=== PATIENT | female | born 1970 | race Caucasian/White ===

== ENCOUNTER → 2021-07-20 10:18 | Outpatient (CLI) | payer OTHER, SELFPAY ==
--- NOTE | ~2021-07-20 | XR_ITS ---
XR knee LT min 4V DATE: 07/20/2021 11:37 INDICATION: Left knee pain TECHNIQUE: Percy and standing AP, PA and lateral views COMPARISON: None FINDINGS: No fracture or dislocation or joint effusion. No radiopaque intra-articular loose body or c hondrocalcinosis. No periosteal reaction or bone destruction. IMPRESSION: No significant abnormality Reviewed, dictated and finalized at location A. IMPRESSION: No significant abnormality
--- NOTE | ~2021-07-20 | XR_ITS ---
XR knee RT min 4V DATE: 07/20/2021 11:37 INDICATION: Right knee pain TECHNIQUE: [place] and standing AP, PA and lateral views COMPARISON: None FINDINGS: There is mild loss of height at the medial compartment and slight periarticular spurring of the medial tibial plateau. No fracture or dislocation or joint effusion. No periosteal reaction or b one destruction. No radiopaque intra-articular loose body or chondrocalcinosis. 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
== END ==
PROVIDERS: PCP Family Medicine; Visit Provider Physician Assistant
DX: M25.562 Pain in left knee (principal); M25.561 Pain in right knee; M17.11 Unilateral primary osteoarthritis, right knee
CPT/HCPCS: 73564

== ENCOUNTER → 2021-12-23 16:01 | Outpatient (CLI) | payer OTHER, SELFPAY ==
--- NOTE | ~2021-12-23 | MM_ITS ---
EXAMINATION: MM scrn chiquita implant BI w clem HISTORY: Screening mammogram TECHNIQUE: Craniocaudal and mediolateral oblique 3-D tomosynthesis images with implant displacement a nd synthetic 2-D images were generated. Craniocaudal and mediolateral oblique views of the breasts wi thout implant displacement were obtained using full field digital mammography. CAD analysis was submi tted and interpreted. COMPARISON: 11/15/2018, 10/20/2017 BREAST PARENCHYMAL COMPOSITION: There are scattered areas of fibroglandular density. FINDINGS: There is no evidence of suspicious mass, calcification, or architectural distortion to sugg est malignancy in either breast. There has been no suspicious interval change. IMPRESSION: 1. No mammographic evidence of malignancy. 2. Recommend routine screening mammography in one year. BI-RADS Category 1: Negative Reviewed, dictated and finalized at location A.
== END ==
PROVIDERS: PCP Family Medicine; Visit Provider Obstetrics & Gynecology
DX: Z12.31 Encounter for screening mammogram for malignant neoplasm of breast (principal)
CPT/HCPCS: 77063; 77067

== ENCOUNTER 2022-04-04 06:49 | Emergency (ER) | payer OTHER, SELFPAY ==
--- NOTE | ~2022-04-04 | US_ITS ---
EXAMINATION: US pelvic complete w TV DATE: 04/04/2022 08:28 INDICATION: Pelvic pain. Endometriosis. Comparison:No prior studies for comparison. TECHNIQUE: Multiple transabdominal and endovaginal sonographic images of the pelvis performed. FINDINGS: The uterus measures 13.3 x 7.5 x 5.9 cm.. The endometrial complex measures 12 mm. There is trace fluid in the endometrium. There are multiple uterine fibroids including a superiorly located ma ss measuring 4.2 x 3.1 x 3.8 cm. and an inferior mass measuring 5.8 x 5.7 x 3.8 cm. The ovaries are not visualized due to enlargement of the uterus. There is no free fluid in the pelvis. There are no abnormal masses seen on either side. IMPRESSION: 1. Enlarged uterus containing multiple fibroids. 2: Endometrial thickening with trace fluid. Reviewed, dictated and finalized at location L.
[2022-04-04 06:52] VITALS: BP 122/70; PULSE 89; RESP 16; TEMP 36.8; O2SAT 100
--- NOTE | 2022-04-04 07:12 | ED.ABDPAIN ---
HPI - Abdominal Pain General Chief Complaint: Abdominal Pain Stated Complaint: pelvic pain Time Seen by Provider: 04/04/22 06:59 History of Present Illness HPI narrative: 51-year-old female presents emergency room secondary to abdominal pain. Been on for approximately 4 days. She does have a history of endometriosis but not had a flareup or problems with her for quite some time. She also has irritable bowel syndrome. She states she is having trouble at this time differentiating what might be going on. She is a 3 para 3. She never had any abdominal surgeries other than bladder surgery. She states she feels almost like waves of spasm type pain. But is mainly in the suprapubic region. She has had no associated chills or fevers. She is vaccinated for COVID. Related Data Allergies Allergy/AdvReac Type Severity Reaction Status Date / Time No Known Drug Allergies Allergy Unknown none Verified 04/04/22 06:55 Review of Systems Review of Systems: CONSTITUTIONAL: Denies fever, chills, or sweats. EYES: Denies visual changes, redness, or discharge. ENT: Denies rhinorrhea, congestion, sore throat, or otalgia. CARDIOVASCULAR: Denies chest pain, palpitations, or edema. RESPIRATORY: Denies cough or dyspnea. GASTROINTESTINAL: Lower abdominal pain that seems to come in waves. No nausea vomiting diarrhea GENITOURINARY: Denies dysuria or hematuria. SKIN: Denies rash or itching. MUSCULOSKELETAL: Denies back pain, joint pain, or myalgia. NEUROLOGIC: Denies headache, numbness, or weakness. PSYCHIATRIC: Denies anxiety or depression. [facility] Past Medical History Medical History Endometriosis Irritable bowel syndrome Surgical History Surgical History History of bladder surgery Social History Social History Smoking status: Never smoker Alcohol intake: current Alcohol use details: social Substance use: never Gender identity (if verbalized by the patient): Female Sexual Orientation (if Verbalized by the Patient): Straight or Heterosexual Exam Narrative: APPEARANCE: Well appearing, mild distress secondary to abdominal pain, well-nourished. Head normocephalic and atraumatic. EYES: PERRLA/EOMI, conjunctivae very clear. NOSE: Normal with no drainage EARS:TMS clear Rigo Alfaro, with good light reflex. THROAT: Pharynx clear, no exudate. NECK: Supple. No adenopathy, no masses. RESPIRATORY: Airway patent, respirations nonlabored. Clear to auscultation bilaterally, no rales, rhonchi, wheezing. CARDIOVASCULAR: Regular rate and rhythm without murmurs, rubs, or gallops. ABDOMINAL: Soft, with suprapubic tenderness. No rebound rigidity guarding. No masses. Specifically no focal right lower quadrant tenderness. Musculoskeletal: Moves all extremities. Strength/ROM intact, No edema, No calf tenderness. NEURO: Alert. Cranial nerves II through XII intact. Normal gait. Good coordination. Nonfocal examination. SKIN:: Warm, dry. Normal Color PSYCHIATRIC: Normal affect/mood, normal interaction PELVIC: No significant vaginal discharge. Cystic lesion noted at the 11 o'clock position on the cervix. She is got significant tenderness to palpation diffusely to the uterus feels slightly enlarged. Course Vital Signs Vital signs: Vital Signs Temperature 98.2 F 04/04/22 06:52 Pulse Rate 89 04/04/22 06:52 Respiratory Rate 16 04/04/22 06:52 Blood Pressure 122/70 04/04/22 06:52 Pulse Oximetry 100 04/04/22 06:52 Oxygen Delivery Room Air 04/04/22 06:52 Temperature 98.2 F 04/04/22 06:52 Pulse Rate 89 04/04/22 06:52 Respiratory Rate 16 04/04/22 06:52 Blood Pressure 122/70 04/04/22 06:52 Pulse Oximetry 100 04/04/22 06:52 Oxygen Delivery Room Air 04/04/22 06:52 MDM - Abdominal Pain MDM Narrative Medical decision making narrative: Patient note
[2022-04-04] MEDS: KETOROLAC 30 MG/ML VIAL (*BKC) IV PUSH (07:37)
--- NOTE | 2022-04-04 07:41 | PC.NURSE ---
Patient taken to ultrasound by mechanical maintenance technician.
[2022-04-04 07:55] LABS: Basophils Absolute Auto 0.1 K/mm3 (0.0-0.1); Basophils Percent Auto 0.3 % (0.2-1.2); Eosinophils Percent Auto 0.2 % (0-4.4); Hematocrit 36.9 % (37.0-47.0); Hemoglobin 12.4 g/dL (12.0-15.0); Immature Granulocyte Absolute 0.14 K/mm3 (0.00-0.031); Immature Granulocyte Percent A 0.7 % (0-0.5); Lymphocytes Percent Auto 5.6 % (18.3-44.2); Mean Corpuscular HGB Conc 33.6 g/dl (32-36); Mean Corpuscular Hemoglobin 30.5 pg (26-34); Mean Corpuscular Volume 90.7 fl (80-100); Monocytes Absolute Auto 1.3 K/mm3 (0.1-0.6); Monocytes Percent Auto 6.7 % (2.6-8.5); Neutrophils Percent Auto 86.5 % (45.5-73.1); Platelet Count Result 225 k/mm3 (150-375); Red Blood Count 4.07 M/mm3 (4.2-5.4); Red Cell Distribution Width 13.9 % (11.5-14.5); White Blood Count 19.6 K/mm3 (4.5-10.0)
[2022-04-04 08:39] LABS: Appearance Urine Slightly Cloudy (Clear); Bilirubin Urine 1+ (Negative); Blood Urine Negative (Negative); Glucose Urine UA Negative (Negative); Ketones Urine Trace mg/dL (Negative); Leukocyte Esterase Ur Negative LEU/UL (Negative); Nitrate Urine Negative (Negative); Protein Urine 1+ mg/dL (Negative); pH Urine 6.5 (5.0-9.0)
[2022-04-04 08:47] LABS: Add Urine Microscopic? YES; Color Urine Dark Yellow (Yellow)
[2022-04-04 08:48] LABS: Bacteria Urine Trace /hpf; Mucus Urine Heavy /lpf; Squamous Epithelial Cell Urine Many /hpf (Few); WBC Urine 0-3 /hpf
[2022-04-04 09:09] LABS: Alanine Aminotransferase 13 U/L (6-35); Albumin Level 3.7 g/dL (3.5-5.1); Alkaline Phosphatase 56 U/L (38-126); Anion Gap 5 mmol/L (8-16); Aspartate Amino Transferase 33 U/L (14-36); Bilirubin,Total 0.6 mg/dL (0.2-1.3); Blood Urea Nitrogen 11 mg/dL (7-17); Calcium 8.3 mg/dL (8.4-10.2); Carbon Dioxide 22 mmol/L (22-30); Chloride 107 mmol/L (98-107); Estimated CRCL calculation 79 ml/min; Estimated Glomerular Filt Rate > 60; Glucose 90 mg/dL (65-110); Potassium 4.5 mmol/L (3.4-5.0); Sodium 134 mmol/L (137-145)
== END 2022-04-04 10:48 | disposition home or self-care (01) ==
PROVIDERS: Emergency Provider Emergency Medicine; PCP Family Medicine
DX: N80.9 Endometriosis, unspecified (principal); R10.2 Pelvic and perineal pain; D72.829 Elevated white blood cell count, unspecified; K58.9 Irritable bowel syndrome, unspecified; D25.9 Leiomyoma of uterus, unspecified
CPT/HCPCS: 36415; 76830; 76856; 80053; 81001; 81025; 85025; 96374; 99284; J1885

== ENCOUNTER 2022-04-04 14:46 | Observation (INO) | payer OTHER, SELFPAY ==
--- NOTE | 2022-04-04 13:20 | PC.NURSE ---
This patient, Ivet Gregory, was admitted to [facility] Surg Room 304-01. Patient/family oriented to hospital policies and general routines including ID bracelet, bed and alarms, visiting hours, pain management, procedures, bathroom and other care routines, personal items, smoking policy, room service/diet, and visiting hours. Information on how to activate the Rapid Response Team has been discussed. Patient/Family are encouraged to report perceived risks to care and to ask questions if they do not understand what they are told or what they should do.
[2022-04-04 13:32] VITALS: BMI 21.2
[2022-04-04 13:40] VITALS: BP 98/59; PULSE 93; RESP 18; TEMP 36.6; O2SAT 100
--- NOTE | 2022-04-04 16:44 | PM.IMHP ---
H&P: [facility] History of Present Illness Date/Time: 04/04/22 16:44 Chief Complaint: Vaginal bleeding Narrative: This patient is a 51-year-old female with severe pelvic pain and vaginal bleeding. Patient presented the emergency department earlier today for pain and possible infection. She had some signs and symptoms of infection. She had an elevated white count and a markedly tender uterus. She was discharged in seen in the office. Upon examination she had profound bright red vaginal bleeding. Patient continued to have pelvic pain. She denies any nausea, vomiting, fever, chills. She denies any chest pain shortness of breath. She was asked to go to the hospital. She continued to bleed heavily. Review of Systems Review of Systems: All systems reviewed & are unremarkable except as noted in HPI and below Constitutional: Constitutional: Denies chills, Denies fatigue, Denies fever(s) and Denies weakness Eyes: Eyes: Denies blurry vision, Denies change in vision, Denies loss of peripheral vision, Denies loss of vision, Denies other visual disturbances and Denies eye pain ENT: Denies vertigo, Denies dizziness, Denies hearing loss, Denies mouth pain, Denies nasal obstruction, Denies neck mass and Denies neck pain Cardiovascular: Cardiovascular: Denies chest pain, Denies diaphoresis, Denies syncope, Denies leg edema and Denies dyspnea Respiratory: Respiratory: Denies chest congestion, Denies cough, Denies hemoptysis, Denies dyspnea and Denies wheezing Gastrointestinal: Gastrointestinal: Denies abdominal pain, Denies constipation, Denies diarrhea, Denies nausea and Denies vomiting Genitourinary: Genitourinary: Denies hematuria, Denies change in libido, Denies nocturia, Denies genital lesions, Denies flank pain and Denies urinary urgency Musculoskeletal: Musculoskeletal: Denies abnormal gait, Denies back pain, Denies myalgias, Denies arthralgias, Denies joint swelling, Denies muscle weakness and Denies neck pain Integumentary/Breasts: Skin/Breast: Denies swelling, Denies breast pain, Denies breast mass, Denies dry skin, Denies nipple discharge, Denies unusual bruising and Denies jaundice Neurologic: Denies Neuro-related abnormal movements, Denies Abnormal speech present, Denies abnormal gait, Denies behavioral changes, Denies confusion, Denies vertigo, Denies dizziness, Denies syncope, Denies loss of vision, Denies memory loss, Denies convulsions and Denies weakness Psychiatric: Psychiatric: Denies abnormal sleep pattern, Denies behavioral changes, Denies change in libido, Denies confusion, Denies depression, Denies anhedonia and Denies memory loss Endocrine: Endocrine: Reports no additional endocrine complaints, Denies change in libido and Denies fatigue Hematologic/Lymphatic: Hematologic/Lymphatic: Reports no additional hematologic/lymphatic complaints Allergic/Immunologic: Allergic/Immunologic: Reports no additional allergic/immunologic complaints and Denies wheezing PMFSH Past Medical History Medical History Endometriosis Irritable bowel syndrome Surgical History Surgical History History of bladder surgery Family History Family History (Updated 04/04/22 @ 13:48 by Karen Pierson RN) Grandparent Ovarian cancer Poncho disease Father Skin cancer (melanoma) Social History Social History Smoking status: Never smoker Alcohol intake: current Drinks per week: 8 Alcohol use details: social Substance use: never Gender identity (if verbalized by the patient): Female Sexual Orientation (if Verbalized by the Patient): Straight or Heterosexual Spiritual care concerns: No Meds Home Medications and Allergies Home Medications Medication Instructions Recorded Confirmed Type norgestimate-ethinyl estradiol 1 tablet PO DAILY #84 tabs 11/20/20
[2022-04-04] MEDS: cefoTEtan DISODIUM INJ 2 GM in DEXTROSE 5% IN WATER 50 ML IVPB (17:10)
[2022-04-04] MEDS: ONDANSETRON INJ 4 MG/2 ML VIAL IV PUSH (18:17)
[2022-04-04] MEDS: ESTROGENS, CONJUGATED 25 MG/5 ML VIAL IV PUSH (18:18)
[2022-04-04] MEDS: IBUPROFEN 400 MG TABLET 800 MG PO (18:19)
[2022-04-04] MEDS: DOXYCYCLINE 100 MG/NS 100 ML 100 MG/100 ML BAG IVPB (18:20)
[2022-04-04 20:00] VITALS: PULSE 67; RESP 16; O2SAT 99
[2022-04-04 21:29] VITALS: BP 97/50; PULSE 67; RESP 16; TEMP 36.9; O2SAT 99
--- NOTE | 2022-04-04 21:35 | PC.NURSE ---
Call placed to Dr. Singer r/t request to have home meds restarted; prior to obtaining orders, RN discovered that patient had brought her own meds from home and had already taken her Trazadone. Patient stated that she didn't really take the rest of the meds on her home medication list. RN removed home medications from direct patient access and locked them in the closet to prevent future self administration of medication.
[2022-04-05] MEDS: IBUPROFEN 400 MG TABLET 800 MG PO ×2 (00:12→08:09)
[2022-04-05] MEDS: ESTROGENS, CONJUGATED 25 MG/5 ML VIAL IV PUSH (00:14)
[2022-04-05] MEDS: cefoTEtan DISODIUM INJ 2 GM in DEXTROSE 5% IN WATER 50 ML IVPB (04:10)
[2022-04-05 04:59] VITALS: BP 88/60; PULSE 63; RESP 18; TEMP 36.3; O2SAT 94
[2022-04-05] MEDS: DEXTROSE 5%/LACTATED RINGERS 1,000 ML 125 ML IV CONT (05:36)
[2022-04-05] MEDS: DOXYCYCLINE 100 MG/NS 100 ML 100 MG/100 ML BAG IVPB (05:37)
[2022-04-05 06:50] LABS: Basophils Percent Auto 0.5 % (0.2-1.2); Eosinophils Absolute Auto 0.2 K/mm3 (0-0.3); Eosinophils Percent Auto 1.9 % (0-4.4); Hematocrit 33.9 % (37.0-47.0); Immature Granulocyte Absolute 0.05 K/mm3 (0.00-0.031); Immature Granulocyte Percent A 0.6 % (0-0.5); Lymphocytes Absolute Auto 1.37 K/mm3 (0.9-3.2); Lymphocytes Percent Auto 16.4 % (18.3-44.2); Mean Corpuscular HGB Conc 32.4 g/dl (32-36); Mean Corpuscular Volume 92.4 fl (80-100); Mean Platelet Volume 10.7 fl (7.4-10.4); Monocytes Absolute Auto 0.8 K/mm3 (0.1-0.6); Monocytes Percent Auto 9.3 % (2.6-8.5); Neutrophils Percent Auto 71.3 % (45.5-73.1); Platelet Count Result 215 k/mm3 (150-375); Red Blood Count 3.67 M/mm3 (4.2-5.4); Red Cell Distribution Width 14.1 % (11.5-14.5); White Blood Count 8.4 K/mm3 (4.5-10.0)
[2022-04-05 07:38] LABS: Alanine Aminotransferase 10 U/L (6-35); Albumin Level 3.1 g/dL (3.5-5.1); Alkaline Phosphatase 46 U/L (38-126); Anion Gap 4 mmol/L (8-16); Aspartate Amino Transferase 23 U/L (14-36); Bilirubin,Total 0.1 mg/dL (0.2-1.3); Blood Urea Nitrogen 11 mg/dL (7-17); Calcium 7.7 mg/dL (8.4-10.2); Carbon Dioxide 21 mmol/L (22-30); Chloride 109 mmol/L (98-107); Estimated CRCL calculation 93 ml/min; Estimated Glomerular Filt Rate > 60; Glucose 94 mg/dL (65-110); Sodium 134 mmol/L (137-145)
[2022-04-05 09:00] VITALS: BP 87/52; PULSE 83; RESP 16; O2SAT 100
--- NOTE | 2022-04-05 09:20 | PM.GYNPNOP ---
DETENTION DEPUTY - A/P Assessment and plan (1) Vaginal bleeding affecting early : Code(s): O20.9 - Hemorrhage in early , unspecified Status: Acute (2) Endometritis: Code(s): N71.9 - Inflammatory disease of uterus, unspecified Status: Acute Assessment and Plan: 51-year-old with vaginal hemorrhage. White count is down, normal,. Bleeding is diminished greatly. Will she will get 1 more estrogen shot. Blood pressures are low, continue this for a few hours. She has some slight postural dizziness. Afebrile, no nausea vomiting or chills. To be discharged home later with oral antibiotics, OCPs, Time Spent With Patient Time: Total time spent is greater than 50% in coordination of care (as documented) at patient's floor/unit and/or counseling patient: Time with patient: 15 - 25 minutes DETENTION DEPUTY- PN:Van Post-Op Subjective Date/time seen: 04/05/22 09:20 generally feels better, bleeding has diminished, has some lower blood pressures and a little dizziness with standing. No fever chills. No nausea vomiting. Exam Const: General: cooperative, healthy appearing, comfortable and no acute distress; No confusion Orientation/consciousness: oriented to person, oriented to place, oriented to time and No confusion HENMT: Head: normal to inspection Ears: external ears normal General nose exam: Normal external nose present Face and sinus: normal facial exam Eyes: General: appearance normal, both eyes and all related structures Neck: Neck: normal visual inspection, trachea midline and supple Resp: Auscultation: clear to auscultation bilaterally, no crackles, no rales, no rhonchi and no wheezes Cardio: Rate: regular rate Rhythm: regular rhythm Heart sounds: no click, no murmurs and no rubs GI: GI Palp: No abdominal tenderness, No Soft to palpation, No Tenderness to palpation present (GI) and No Palpable mass present Auscultation: normal bowel sounds Skin: General skin exam: normal color and no rashes or lesions noted Neuro: General: oriented to person, oriented to place, oriented to time and No confusion Speech: No Abnormal speech present Extrem: General: normal to inspection, no joint enlargement, no clubbing, cyanosis or edema, no pedal edema and no calf tenderness Psych: Appearance: grossly normal Mental Status: mental status grossly normal Speech and movement: Normal speech and movement present DETENTION DEPUTY - PN: Obj Data Vital Signs Vital Signs: Vital Signs - 24 hr 04/04/22 13:40 04/04/22 14:35 04/04/22 21:29 Temperature 97.9 F 98.4 F Pulse Rate 93 67 Respiratory Rate 18 16 Blood Pressure 98/59 L 97/50 L Pulse Oximetry 100 99 Oxygen Delivery Room Air 04/04/22 20:00 04/05/22 04:59 04/05/22 09:00 Temperature 97.4 F L Pulse Rate 67 63 83 Respiratory Rate 16 18 16 Blood Pressure 88/60 L 87/52 L Pulse Oximetry 99 94 100 Oxygen Delivery Room Air Intake/Output Intake/Output: Intake & Output 04/02/22 04/03/22 04/04/22 04/05/22 23:59 23:59 23:59 23:59 Intake Total 450 310 Output Total 250 400 Balance 200 -90 Meds/Results Medications: Active Medications Generic Name Dose Route Start Last Admin Trade Name Freq PRN Reason Stop Dose Admin Hydrocodone Bitart/Acetaminophen 2 tab 04/04/22 15:04 Hydrocodone/Acetaminophen (*Crx) 5-325 Mg Tablet PO Q6H PRN Pain Rated 7-10 Aspirin 162 mg 04/05/22 08:00 Aspirin 81 Mg Chewable Tablet PO DAILY@0800 WHITLEY Estrogens Conjugated 25 mg 04/05/22 09:19 Estrogens, Conjugated 25 Mg/5 Ml Vial IM 04/05/22 09:20 ONCE ONE Cefotetan Disodium 2 gm/ 50 mls @ 100 mls/hr 04/04/22 17:00 04/05/22 04:43 Dextrose IVPB Infused Q12H WHITLEY Infusion Doxycycline Hyclate 100 mg in 100 mls @ 100 mls/hr 04/04/22 18:00 04/05/22 05:37 Vibramycin 100 Mg/Ns 100 Ml IVPB 100 mls/hr Q12H WHITLEY Administration Dextrose/Lactated Ringer's 1,000 mls @ 125 mls/hr 04/05/22 05:20 04/05/22 05:36 De
[2022-04-05] MEDS: ESTROGENS, CONJUGATED 25 MG/5 ML VIAL IM (10:09)
[2022-04-05] MEDS: HYDROcodone/acetaminophen (*CRX) 5-325 MG TABLET 2 TAB PO (10:21)
[2022-04-05 10:27] VITALS: BP 103/65; PULSE 71; RESP 16; TEMP 36.6; O2SAT 100
== END 2022-04-05 12:50 | disposition home or self-care (01) ==
PROVIDERS: Admitting Provider Obstetrics & Gynecology; PCP Family Medicine; Visit Provider Obstetrics & Gynecology
DX: N93.9 Abnormal uterine and vaginal bleeding, unspecified (principal); N71.9 Inflammatory disease of uterus, unspecified; N80.9 Endometriosis, unspecified; D72.829 Elevated white blood cell count, unspecified; R42 Dizziness and giddiness; K58.9 Irritable bowel syndrome, unspecified; R03.1 Nonspecific low blood-pressure reading; Z72.89 Other problems related to lifestyle; Z79.1 Long term (current) use of non-steroidal anti-inflammatories (NSAID); Z79.891 Long term (current) use of opiate analgesic
CPT/HCPCS: 36415; 80053; 85025; 96365; 96367; 96372; 96375; A9270; G0378; G0379; J1410; J2405; J7121

== ENCOUNTER → 2022-08-22 11:31 | Outpatient (CLI) | payer OTHER, SELFPAY ==
--- NOTE | ~2022-08-22 | XR_ITS ---
EXAMINATION: XR thoracic spine 2V DATE: 08/22/2022 12:15 INDICATION: Thoracic back pain. TECHNIQUE: 3 views of thoracic spine were obtained. COMPARISON: Chest 2 views 09/28/16 FINDINGS: There is 10 degrees dextroscoliosis of thoracic spine. There is mild chronic anterior wedgi ng of 3 midthoracic vertebral bodies. There is mildly decreased disc height at multiple levels in mid thoracic spine. There are osteophytes of the endplates at most levels. IMPRESSION: 1. Mild thoracic spondylosis. 2. Thoracic dextroscoliosis. Reviewed, dictated and finalized at location A. 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
--- NOTE | ~2022-08-22 | XR_ITS ---
XR_CERV2-3V_CR INDICATION: Cervicalgia. TECHNIQUE: 3 views of the cervical spine. FINDINGS: Comparison to 07/17 The cervical spine is visualized to the cervicothoracic junction. Mild levocurvature of the cervical spine. There is no prevertebral soft tissue swelling, listhesis, or loss of vertebral body height. I ntervertebral disc spaces are normal. The osseous central canal is patent. No displaced cervical sp ine fractures are identified. Lung apices are unremarkable. IMPRESSION: 1. No acute osseous abnormality of the cervical spine. Reviewed, dictated and finalized at location A. 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
== END ==
PROVIDERS: PCP Chiropractor; Visit Provider Chiropractor
DX: M99.02 Segmental and somatic dysfunction of thoracic region (principal); M54.6 Pain in thoracic spine; M99.01 Segmental and somatic dysfunction of cervical region; M54.2 Cervicalgia; M43.04 Spondylolysis, thoracic region; M41.84 Other forms of scoliosis, thoracic region
CPT/HCPCS: 72040; 72070

== ENCOUNTER → 2023-01-02 14:13 | Outpatient (CLI) | payer OTHER, SELFPAY ==
--- NOTE | ~2023-01-02 | MM_ITS ---
EXAMINATION: MM scrn chiquita implant BI w clem HISTORY: Screening mammogram TECHNIQUE: Craniocaudal and mediolateral oblique 3-D tomosynthesis images with implant displacement a nd synthetic 2-D images were generated. Craniocaudal and mediolateral oblique views of the breasts wi thout implant displacement were obtained using full field digital mammography. CAD analysis was submi tted and interpreted. COMPARISON: Comparison to multiple prior studies sequentially, with oldest reviewed study dated 02/14. BREAST PARENCHYMAL COMPOSITION: The breasts are heterogeneously dense, which may obscure small masses . FINDINGS: There are bilateral subpectoral silicone implants. Center There is no evidence of suspiciou s mass, calcification, or architectural distortion to suggest malignancy in either breast. There has been no suspicious interval change. IMPRESSION: 1. No mammographic evidence of malignancy. 2. Recommend routine screening mammography in one year. BI-RADS Category 1: Negative Reviewed, dictated and finalized at location A.
== END ==
PROVIDERS: PCP Family Medicine; Visit Provider Nurse Practitioner
DX: Z12.31 Encounter for screening mammogram for malignant neoplasm of breast (principal)
CPT/HCPCS: 77063; 77067

== ENCOUNTER → 2023-06-09 14:08 | Outpatient (CLI) | payer OTHER, SELFPAY ==
--- NOTE | ~2023-06-09 | XR_ITS ---
XR hip LT min 2V 06/09/2023 14:28 INDICATION: Left hip PROCEDURE: 2 views left hip COMPARISON: No prior studies for comparison. FINDINGS: Fracture, dislocation or subluxation is not identified. The soft tissues appear within norm al limits. No foreign bodies are identified. IMPRESSION: 1: NO ACUTE BONE OR JOINT ABNORMALITY IDENTIFIED. Reviewed, dictated and finalized at location L.
== END ==
PROVIDERS: PCP Family Medicine; Visit Provider Physician Assistant
DX: M25.552 Pain in left hip (principal)
CPT/HCPCS: 73502

== ENCOUNTER → 2023-11-21 10:29 | Outpatient (CLI) | payer OTHER, SELFPAY ==
--- NOTE | ~2023-11-21 | MR_ITS ---
MRI of the left hip Clinical history: Pain Technique: Coronal T1-weighted, T2-weighted, and proton-density fat-sat images, and axial T1-weighted and proton-density fat-sat images were acquired through the pelvis. Coronal T2-weighted images and c oronal, axial, and sagittal proton-density fat-sat images were acquired through the left hip. Findings: There is no fracture or avascular necrosis of either hip. Bone marrow signals the proximal femora and visualized pelvic bones are unremarkable. Bilateral hip joint spaces are preserved, possib le minimal chondral thinning. No joint effusion. No definite left acetabular labral tear seen. Visualized musculature about the pelvis and left hip is unremarkable. No muscle atrophy or edema. No bursitis. Because tendons are intact. No mass lesion or fluid collection seen. IMPRESSION: Overall, no significant abnormality identified. Reviewed, dictated and finalized at [facility]. 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
== END ==
PROVIDERS: PCP Physician Assistant; Visit Provider Physician Assistant
DX: M25.552 Pain in left hip (principal)
CPT/HCPCS: 73721

== ENCOUNTER 2024-01-09 10:06 | Outpatient (CLI) | payer OTHER, SELFPAY ==
--- NOTE | ~2024-01-09 | MM_ITS ---
EXAMINATION: MM scrn chiquita implant BI w clem HISTORY: Screening mammogram TECHNIQUE: Craniocaudal and mediolateral oblique 3-D tomosynthesis images with implant displacement a nd synthetic 2-D images were generated. Craniocaudal and mediolateral oblique views of the breasts wi thout implant displacement were obtained using full field digital mammography. CAD analysis was submi tted and interpreted. COMPARISON: Comparison to multiple prior studies sequentially, with oldest reviewed study dated 12/23. BREAST PARENCHYMAL COMPOSITION: The breasts are heterogeneously dense, which may obscure small masses . FINDINGS: There is no evidence of suspicious mass, calcification, or architectural distortion to sugg est malignancy in either breast. There has been no suspicious interval change. IMPRESSION: 1. No mammographic evidence of malignancy. 2. Recommend routine screening mammography in one year. BI-RADS Category 1: Negative Reviewed, dictated and finalized at location A.
== END 2024-01-09 10:07 ==
LOC: MICIMG 10:07
PROVIDERS: PCP Family Medicine; Visit Provider Family Medicine
DX: Z12.31 Encounter for screening mammogram for malignant neoplasm of breast (principal)
CPT/HCPCS: 77063; 77067

== ENCOUNTER 2024-03-18 19:02 | Emergency (ER) | payer OTHER, SELFPAY ==
--- NOTE | ~2024-03-18 | XR_ITS ---
XR chest 2V Ordering provider: Toma Calle APRN History: 53 years Female with . cough and congestion x 1 week . Comparison: September 28, 2016 FINDINGS: MEDIASTINUM: The cardiac silhouette is not enlarged. LUNGS: No infiltrates, effusions or pneumothorax. Slightly prominent markings in the left lung base. OTHER: No free air under the diaphragm. IMPRESSION: No acute cardiopulmonary pathology. Reviewed, dictated and finalized at location A.
--- NOTE | 2024-03-18 19:10 | ED.URI ---
HPI - URI/Sore Throat General Chief Complaint: Ear Stated Complaint: bilateral ear pain,cough Time Seen by Provider: 03/18/24 19:15 Source: patient, RN notes reviewed and old records reviewed Mode of arrival: ambulatory Limitations: no limitations History of Present Illness HPI Narrative: 53-year-old female presents to the [facility] with bilateral ear discomfort and a cough that started about 1 week ago. Was prescribed Astelin, prednisone, Cipro and mucus relief on the , 3 days ago, through a telehealth provider. states that she is not feeling better On discharge patient did states that she was not using the nasal spray that she had been prescribed. Had been taking the prednisone and the Cipro. Treatments prior to arrival: antibiotics and other (Steroid and nasal spray) Related Data Home Medications Medication Instructions Recorded Confirmed azelastine 137 mcg-fluticasone 50 1 spray intranasal BID 03/18/24 03/18/24 mcg/spray nasal spray ciprofloxacin HCl 500 mg tablet 500 mg PO DAILY 03/18/24 03/18/24 guaifenesin 1,200 mg tablet, 1,200 mg PO DIRECTED 03/18/24 03/18/24 extended release 12 hr (Mucus Relief ER) Allergies Allergy/AdvReac Type Severity Reaction Status Date / Time No Known Drug Allergies Allergy Unknown none Verified 03/18/24 19:12 Review of Systems Review of Systems: All systems reviewed & are unremarkable except as noted in HPI and below Constitutional: Constitutional: Reports no additional constitutional complaints Eyes: Eyes: Reports no additional eye complaints ENT: Reports as per HPI and Reports otalgia Cardiovascular: Cardiovascular: Reports no additional cardiovascular complaints, Denies chest pain and Denies dyspnea Respiratory: Respiratory: Reports as per HPI, Denies chest congestion, Reports cough and Denies dyspnea Gastrointestinal: Gastrointestinal: Reports no additional gastrointestinal complaints, Denies abdominal pain, Denies nausea and Denies vomiting Musculoskeletal: Musculoskeletal: Reports no additional musculoskeletal complaints Integumentary/Breasts: Skin/Breast: Reports system reviewed and no additional complaints, except as docu Neurologic: Reports system reviewed and no additional complaints, except as documented Psychiatric: Psychiatric: Reports no additional psychiatric complaints Allergic/Immunologic: Allergic/Immunologic: Reports no additional allergic/immunologic complaints PMFSH Past Medical History Medical History Endometriosis Irritable bowel syndrome Surgical History Surgical History History of bladder surgery Family History Family History Grandparent Ovarian cancer Cand[place] disease Father Skin cancer (melanoma) Social History Social History Smoking status: Never smoker Alcohol intake: current Drinks per week: 8 Alcohol use details: social Substance use: never Living arrangements: with family Occupation/Education: occupation Gender identity (if verbalized by the patient): Female Sexual Orientation (if Verbalized by the Patient): Straight or Heterosexual Spiritual care concerns: No Comments At the time of my signature, I reviewed and agree with the nursing past medical, surgical, social, and family history. There is no relevant family history pertinent to the patient complaint. Exam Const: General: cooperative, healthy appearing, comfortable, no acute distress, well developed, alert and well nourished Nutritional Appearance: well nourished Orientation/consciousness: patient oriented x3 Limitations: no limitations HENMT: Head: normal to inspection Ears: hearing grossly normal bilaterally, external ears normal, EAC's normal, mastoids normal, no periauricular adenopathy and TM abnormal wit
[2024-03-18 19:12] VITALS: BP 111/74; PULSE 74; RESP 16; TEMP 36.8; O2SAT 98
[2024-03-18 19:15] VITALS: BP 111/74; PULSE 74; RESP 16; TEMP 36.8; O2SAT 98
== END 2024-03-18 19:57 | disposition home or self-care (01) ==
PROVIDERS: Emergency Provider Nurse Practitioner; PCP Family Medicine
DX: J40 Bronchitis, not specified as acute or chronic (principal); H65.03 Acute serous otitis media, bilateral; J32.9 Chronic sinusitis, unspecified; Z20.822 Contact with and (suspected) exposure to COVID-19; N80.9 Endometriosis, unspecified
CPT/HCPCS: 71046; 87426; 87804; 99213; G0463

== ENCOUNTER 2024-05-16 13:44 | Outpatient (CLI) | payer OTHER, SELFPAY ==
--- NOTE | ~2024-05-16 | US_ITS ---
US transvaginal Ordering provider: Ellyn Kilpatrick MD History: . PELVIC PAIN . Comparison: None. Technique: endovaginal ultrasound of the pelvis (Doppler ultrasound interrogation techniques used as needed for this exam.) FINDINGS: UTERUS: Status post hysterectomy. No abnormality seen in the area of the uterus. CUL DE SAC: No free fluid. RIGHT OVARY: Normal in size measuring 3.1x 1.4x 2.3 cm. Normal echotexture. Doppler vascular flow pre sent. Simple cyst is seen measuring 1.5x 1.2x 1.1 cm. LEFT OVARY: Not visualized. No abnormality seen in the area. ADNEXA: Normal. No mass. IMPRESSION: Right ovarian simple cyst. Otherwise, normal pelvic ultrasound. Reviewed, dictated and finalized at location A.
== END 2024-05-16 13:45 ==
LOC: MICIMG 13:45
PROVIDERS: PCP Obstetrics & Gynecology Gynecology; Visit Provider Obstetrics & Gynecology Gynecology
DX: R10.2 Pelvic and perineal pain (principal); N83.201 Unspecified ovarian cyst, right side
CPT/HCPCS: 76830

== ENCOUNTER 2024-06-01 16:08 | Outpatient (CLI) | payer OTHER, SELFPAY ==
--- NOTE | ~2024-06-01 | XR_ITS ---
EXAMINATION: XR shoulder LT min 2V DATE: 06/01/2024 16:16 INDICATION: Left shoulder pain. TECHNIQUE: 4 views of left shoulder were obtained. COMPARISON: None. FINDINGS: Alignment is normal. No fracture. Joint spaces are normal. IMPRESSION: 1. Normal left shoulder. Reviewed, dictated and finalized at location A. IMPRESSION: 1. Normal left shoulder.
== END 2024-06-01 16:09 | disposition home or self-care (01) ==
LOC: MICIMG 16:09
PROVIDERS: PCP Family Medicine; Visit Provider Family Medicine
DX: M25.512 Pain in left shoulder (principal)
CPT/HCPCS: 73030

== ENCOUNTER 2024-08-20 09:00 | Outpatient (CLI) | payer OTHER, SELFPAY ==
--- NOTE | ~2024-08-20 | MR_ITS ---
EXAMINATION: MR shoulder LT wo con DATE: 08/20/2024 09:30 INDICATION: Left shoulder pain. TECHNIQUE: Magnetic resonance imaging (MRI) of the left shoulder was performed without intravenous co ntrast. Sequences included axial PD-weighted FS FSE, coronal oblique PD-weighted FS FSE and T2-weight ed FS FSE, and sagittal oblique T2-weighted FS FSE and T1-weighted FSE. COMPARISON: Left shoulder radiographs 06/01/2024 FINDINGS: Coracoacromial arch: The acromion undersurface is curved in morphology (type II). The acromioclavicular joint is normal. N o subacromial/subdeltoid bursitis. Rotator cuff: There is mild supraspinatus and infraspinatus tendinopathy. Teres minor tendon is normal. The subscap ularis tendon is normal. The rotator cuff muscle bellies are normal. Biceps tendon and glenoid labrum: Biceps tendon is in bicipital groove. Intra-articular biceps tendon is normal. The glenoid labrum is normal. Fluid: There is no glenohumeral joint effusion. Bones/cartilage: The humeral head cartilage is normal. Glenoid cartilage is normal. IMPRESSION: 1. Mild rotator cuff tendinopathy. No tear. Reviewed, dictated and finalized at location A. 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
== END 2024-08-20 09:01 | disposition home or self-care (01) ==
PROVIDERS: PCP Family Medicine; Visit Provider Physician Assistant
DX: M75.32 Calcific tendinitis of left shoulder (principal)
CPT/HCPCS: 73221

== ENCOUNTER 2024-12-23 16:06 | Outpatient (CLI) | payer OTHER, SELFPAY ==
--- NOTE | ~2024-12-23 | MR_ITS ---
EXAMINATION: MR cervical spine wo con DATE: 12/23/2024 16:33 INDICATION: Neck pain. TECHNIQUE: Magnetic resonance imaging (MRI) of the cervical spine was performed without intravenous c ontrast. COMPARISON: Cervical spine radiographs 08/22/2022 FINDINGS: Alignment is normal. There is mild chronic anterior wedging of T1 vertebral body. Intervert ebral disc heights are normal. The spinal cord signal intensity is normal. The following disc levels are specifically discussed: C2-C3: The disc does not extend beyond the endplate margin. There is no uncovertebral joint osteoarth ritis. There is moderate right and severe left facet joint osteoarthritis. There is mild left neural foraminal stenosis. There is no central canal stenosis. C3-C4: There is a central protrusion. There is no uncovertebral joint osteoarthritis. There is severe right and moderate left facet joint osteoarthritis. There is no neural foraminal stenosis. There is mild central canal stenosis. C4-C5: The disc does not extend beyond the endplate margin. There is no uncovertebral joint osteoarth ritis. There is severe right and moderate left facet joint osteoarthritis. There is no neural foramin al stenosis. There is no central canal stenosis. C5-C6: The disc does not extend beyond the endplate margin. There is no uncovertebral joint osteoarth ritis. There is severe bilateral facet joint osteoarthritis. There is mild bilateral neural foraminal stenosis. There is no central canal stenosis. C6-C7: The disc is bulging. There is mild bilateral uncovertebral joint osteoarthritis. There is mild bilateral facet joint osteoarthritis. There is mild left neural foraminal stenosis. There is mild ce ntral canal stenosis. C7-T1: The disc does not extend beyond the endplate margin. There is no uncovertebral joint osteoarth ritis. There is moderate bilateral facet joint osteoarthritis. There is mild bilateral neural foramin al stenosis. There is no central canal stenosis. IMPRESSION: 1. Mild cervical spondylosis. Reviewed, dictated and finalized at location A.
== END 2024-12-23 16:07 | disposition home or self-care (01) ==
LOC: MICIMG 16:08
PROVIDERS: PCP Family Medicine; Visit Provider Orthopaedic Surgery Orthopaedic Surgery of the Spine
DX: M47.892 Other spondylosis, cervical region (principal)
CPT/HCPCS: 72141

== ENCOUNTER 2025-03-21 16:18 | Outpatient (CLI) | payer OTHER, SELFPAY ==
--- NOTE | ~2025-03-21 | MM_ITS ---
EXAMINATION: MM scrn chiquita implant BI w clem HISTORY: Screening mammogram TECHNIQUE: Craniocaudal and mediolateral oblique 3-D tomosynthesis images with implant displacement a nd synthetic 2-D images were generated. Craniocaudal and mediolateral oblique views of the breasts wi thout implant displacement were obtained using full field digital mammography. CAD analysis was submi tted and interpreted. COMPARISON: 01/09/2024, 01/02/2023, 12/15/2021 BREAST PARENCHYMAL COMPOSITION: There are scattered areas of fibroglandular density. FINDINGS: There is no evidence of suspicious mass, calcification, or architectural distortion to sugg est malignancy in either breast. There has been no suspicious interval change. IMPRESSION: No mammographic evidence of malignancy. Recommend routine screening mammography in one year. BI-RADS Category 1: Negative Reviewed, dictated and finalized at [facility].
== END 2025-03-21 16:19 | disposition home or self-care (01) ==
LOC: MICIMG 16:19
PROVIDERS: PCP Family Medicine; Visit Provider Family Medicine
DX: Z12.31 Encounter for screening mammogram for malignant neoplasm of breast (principal)
CPT/HCPCS: 77063; 77067

== ENCOUNTER 2025-06-07 17:14 | Emergency (ER) | payer OTHER, SELFPAY ==
--- NOTE | ~2025-06-07 | US_ITS ---
EXAMINATION:US venous doppler LE LT INDICATION:Left knee pain TECHNIQUE: Multiple grayscale, color flow and Doppler images of the left lower extremity deep venous systems were obtained and reviewed. COMPARISON:No prior studies for comparison. FINDINGS: The common femoral, superficial femoral and popliteal veins demonstrate normal respiratory variation, augmentation and compressibility. Color flow is also seen within the posterior tibial, peroneal, greater saphenous and profunda veins. IMPRESSION: 1: No lower extremity deep venous thrombosis. Reviewed, dictated and finalized at location O.
--- NOTE | ~2025-06-07 | XR_ITS ---
XR knee LT 3V 06/07/2025 17:50 INDICATION: Left knee pain PROCEDURE: 3 views left knee COMPARISON: No prior studies for comparison. FINDINGS: Fracture, dislocation or subluxation is not identified. The soft tissues appear within normal limits. No foreign bodies are identified. IMPRESSION: 1: NO ACUTE BONE OR JOINT ABNORMALITY IDENTIFIED. Reviewed, dictated and finalized at location O.
--- OUTSIDE RECORDS SUMMARY | 2025-06-07 17:16 | XMS_ITS | Encounter Summary ---
Author Organization [facility] Healthcare Address [address] [place] [address] Care Team Providers Care Captain Fishing Vessel Name Role Phone Rustam Sanchez MD Primary Care Provider Reason for Visit * Reason Onset Date Comments Ready to schedule 01/02/2023 Encounter Details Date Type Department Care Team (Late st Contact Info) Description 01/02/2023 Telephone [facility] Specialty Services [address] [place] [phone] Miscellaneous, Not In File Ready to schedule Social History Tobacco Use Types Packs/Day Years Used Date Smoking Tobacco: Never Assessed Comments Unknown Sex and Gender Information Value Date Recorded Sex Assigned at Not on file Legal Sex Female 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 [address] [place] [address] PCP - General Family Medicine 01/21/23 documented as of this encounter
--- OUTSIDE RECORDS SUMMARY | 2025-06-07 17:16 | XMS_ITS | Clinical Summary ---
Author Organization [facility] Address [address] [facility] [place] [address] Care Team Providers Care Radio Station Operator Name Role Phone Rustam Sanchez MD Primary Care Provider Allergies Active Allergy Reactions Criticality Noted Date Comments Adhesive Rash Medium 05/28/2023 Adhesive under steri strips Medications cyclobenzaprine (FLEXERIL) 5 mg tablet 08/14/2021 Active traZODone (DESYREL) 50 mg tablet TAKE 3 TABLETS BY MOUTH EVERYDAY AT BEDTIME 10/21/2023 Active Linzess 290 mcg capsule Take by mouth daily 11/15/2024 Active meloxicam (MOBIC) 15 mg tablet Take 1 tablet (15 mg total) by mouth daily 30 tablet 1 12/20/2024 Active Active Problems Problem Noted Date Diagnosed Date Screening for colon cancer 01/21/2023 Dysmenorrhea 05/05/2022 Dyspareunia due to medical condition in female 0 05/05/2022 Leiomyoma of uterus 04/21/2022 Abnormal uterine bleeding 06/22/2018 Overview (12/31/2023): Other specified abnormal uterine and vaginal bleeding;Recorded Elsewhere: No Location: [facility] Source: EHR Chronic: N Practice ID: [id number] Billable Time: 10:30:00 AM Contraceptive management 08/10/2017 Overview (12/31/2023): IUD follow up;Recorded Elsewhere: No Location: [facility] Source: EHR Chronic: N Practice ID: [id number] Billable Time: 04:45:00 PM Female genital symptoms 03/14/2015 Overview (12/31/2023): Pelvic pain;Recorded Elsewhere: No Location: [facility] Source: EHR Chronic: N Practice ID: [id number] Billable Time: 08:30:00 AM Immunizations Immunization Administration Dates Next Due Flucelvax Influenza Quad MDI 09/24/2013 Influenza, Quadrivalent, Elba l Culture-based MDCK, Preservative Free, Antibiotic Free, Intramuscular 09/27/2018 Influenza, Quadrivalent, Spl it, Preservative Free, Intramuscular 08/15/2019 Influenza, Trivalent, Preser vative Free, Intramuscular 09/16/2017,09/12/2016,09/13/2014 Surgical History Surgery Date Site/Laterality Comments COSMETIC SURGERY 09/28/2018 - 09/27/2019 BLADDER SURGERY 09/28/2022 - 09/27/2023 HYSTERECTOMY 09/28/2022 - 09/27/2023 partial Medical History Medical History Date Comments History of suburethral sling procedure Peripheral neuropathy Social History Tobacco Use Types Packs/Day Years Used Date Smoking Tobacco: Never Smokeless Tobacco: Never Tobacco Cessation:Counseling Given: Not Answered AUDIT-C Answer Date Recorded Q1: How often do you have a drink containing alc ohol? 2-3 times a week 03/20/2023 Q2: How many drinks containi ng alcohol do you have on a typical day when you are drinking? 1 or 2 03/20/2023 Q3: How often do you have si x or more drinks on one occasion? Never 03/20/2023 Personal Safety Answer Date Recorded Have you ever been in or are you currently in a harmful physical or emotional relationship or is someone making you feel afraid or unsafe? 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 Gender Identity Not on file Sexual Orientation Not on file Obstetrics History Last Filed Vital Signs Vital Sign Reading Time Taken Comments Blood Pressure 107/63 04/13/2024 4:20 PM CDT Pulse 77 04/13/2024 4:20 PM CDT Temperature 37 C (98.6 F) 04/13/2024 4:20 PM CDT Respiratory Rate 20 04/13/2024 4:20 PM CDT Oxygen Saturation 99% 04/13/2024 4:20 PM CDT Inhaled Oxygen Concentration - - Weight 56.7 kg (125 lb) 12/20/2024 3:47 PM CDT Height 170.2 cm (5' 7) 12/20/2024 3:47 PM CDT Body Mass Index 19.58 12/20/2024 3:47 PM CDT Plan of Treatment Health Maintenance Due Date Last Done Comments Depression Screening 1972 Hepatitis C Screening 1972 DTaP/Tdap/Td Vaccine (1 - Tdap) 1983 Hepatitis B Screening 1990 Regular Well Visit/Exam 18-64 1990 Zoster Vaccine (1 of 2) 2022 Breast Cancer Screening-Mammogram 12/24/2022 12/24/2021, 12/23/2021 Covid-19 Vaccine (3 - season) 2024 09/07/2021, 08/08/2021 Influenza Vaccine (#1) 2025 9, 09/27/2018, 09/16/2017, Additional history exists Colon Cancer Screening-Colonoscopy 03/20/2033 03/20/2023 Pneumococcal vaccine <65 Aged Out No longer eligible based on patient's age to complete this topic Procedures Procedure Name Priority Date/Time Associated Diagnosis Comments COLONOSCOPY 03/20/2023 8:06 AM CDT from Last 3 Months or Most Recently Relevant to Health Maintenance Results * COLONOSCOPY (03/20/2023 8:06 AM CDT) Anatomical Region Laterality Modality Other Narrative Procedure Note Nilton Nelson MD - 03/20/2023 8:06 AM CDT ENDOSCOPY LAB Patient Name: Ivet Gregory Procedure Date: 03/20/2023 8:06 AM Date of : 1970 Admit Type: Outpatient Age: 52 Gender: Female Attending MD: Nilton Nelson M.D. Room: [facility] ENDOSCOPY ROOM 05 Note Status: Finalized Procedure: Colonoscopy Indications: Screening for colorectal malignant neoplasm, Last colonoscopy 20 years ago Providers: Nilton Nelson M.D. Referring MD: Rustam Sanchez M.D. Medicines: Monitored Anesthesia Care Complications: No immediate complications. Estimated Blood Loss: Estimated blood loss: none. Procedure: Pre-Anesthesia Assessment: - Prior to the procedure, a History and Physicalwas performed, and patient medications, allergies and sensitivities were reviewed. The patient'stolerance of previous anesthesia was reviewed. The benefits, risks and alternatives of theprocedure and sedation were discussed and informed consentwas obtained. All questions were answered. Please referto the signed informed consent document in the medical record. The scope was passed under direct vision.The [id number] was introduced through the anusand advanced to the cecum, identified by appendiceal orifice and ileocecal valve. The colonoscopy was performed without difficulty. The patient tolerated the procedure well. The quality of the bowel preparation was evaluated using the BBPS (BostonBowel Preparation Scale) with scores of: Right Colon = 2 (minor amount of residual staining, small fragmentsof stool and/or opaque liquid, but mucosa seen well), Transverse Colon = 2 (minor amount of residual staining, small fragments of stool and/or opaque liquid, but mucosa seen well) and Left Colon = 2 (minor amount of residual staining, small fragmentsof stool and/or opaque liquid, but mucosa seen well).The total BBPS score equals 6. Findings: The digital rectal exam was normal. A 3 mm polyp was found in the sigmoid colon. The polyp was sessile.The polyp was removed with a jumbo cold forceps. Resection and retrieval were complete. The exam was otherwise without abnormality. Impression: - One 3 mm polyp in the sigmoid colon, removed witha jumbo cold forceps. Resected and retrieved. - The examination was otherwise normal. Recommendation: - Await pathology results. - Repeat colonoscopy for surveillance based on pathology results. Attending Participation: I personally performed the entire procedure. Electronically signed by Nilton Nelson MD Nilton Nelson M.D. 03/20/2023 8:34:56 AM Number of Addenda: 0 Note Initiated On: 03/20/2023 8:06 AM Nilton Nelson MD PhD ENDOSCOPY PROCEDURES Francesca l Result from Last 3 Months or Most Recently Relevant to Health Maintenance Insurance [facility] Address: [address] [address] [facility] Address: [address] [address] Advance Directives For more information, please contact: [phone] * Full Code (Latest Code Status on File) Date Activated Date Inactivated Comments 03/20/2023 7:07 AM 03/20/2023 1:37 PM Care Teams Radio Station Operator Relationship Specialty Start Date End Date Rustam Sanchez MD [address] [facility] [address] [place] [address] PCP - General Family Medicine 01/21/23
--- OUTSIDE RECORDS SUMMARY | 2025-06-07 17:16 | XMS_ITS | Patient Health Record ---
Author Organization [facility] Address [address] [place] [address] Care Team Providers Care Caustic Preparer Name Role Phone Rustam Watson Primary Care Provider [phone] ALLERGIES No Known Allergies REASON FOR REFERRAL No Information MEDICATIONS Medication SIG (Take, Route, Frequency, Duration) Notes Start Date End Date Status Docusate Sodium 100 MG 1 capsule as need ed Orally twice a day Active traZODone HCl 150 MG 1 tablet at bedtime Orally Once a day for 90 days 10/09/2022 Active oral contraceptive pill Not-Taking Cetirizine HCl 10 MG 1 tablet Orally Onc e a day for 14 days 01/06/2023 Not-Taking Linzess 145 MCG 1 capsule at least 3 0 minutes before the first meal of the day on an empty stomach Orally Once a day Active SOCIAL HISTORY Tobacco Use: Social History Observation Description Date Details (start date - stop date) Never Smoker NA - NA Sex Assigned At : Social History Observation Description Sex Assigned At Unknown Tobacco Use/Smoking Question Answer Notes Are you a nonuser Household Question Answer Notes Marital Status PROBLEMS Problem Type ICD Code Onset Dates Problem Status W/U Status Risk SNOMED Code Notes Problem Uterine leiomyoma, unspecified location (D25.9) Active confirmed 95780240 Problem Insomnia, unspecified type (G47.00) Active confirmed 378272190 Problem Irritable bowel syndrome with constipation (K58.1) Active confirmed 145154902 PLAN OF TREATMENT No Information Insurance Providers Payer Name Payer Address Payer Phone Subscriber Number Group Number Insured Name Patient Relationship to Insured Coverage Start Date Coverage End Date [facility] [address] [address] [place] [address] [id number] [phone] Ivet Gregory Self - patient is the insured MEDICAL (GENERAL) HISTORY Medical History History ICD Code IBS-C infertility endometriosis fibromyalgia uterine fibroid chronic fatigue syndrome Surgical History Surgery Date(Month/Year) breast implants Bladder surgery 2021 Hospitalization History Reason Date(Month/Year) uterine fibroid pain, bleeding, overnigh t x2 04/04/22
--- OUTSIDE RECORDS SUMMARY | 2025-06-07 17:16 | XMS_ITS | Encounter Summary ---
Author Organization [facility] Healthcare Address [address] [place] [address] Care Team Providers Care Manager Patient Name Role Phone Rustam Sanchez MD Primary Care Provider Encounter Details Date Type Department Care Team (Late st Contact Info) Description 01/02/2023 Documentation [facility] Specialty Services [address] [place] [phone] Miscellaneous, Not In File Social History Tobacco Use Types Packs/Day Years Used Date Smoking Tobacco: Never Assessed Comments Unknown Sex and Gender Information Value Date Recorded Sex Assigned at Not on file 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
--- OUTSIDE RECORDS SUMMARY | 2025-06-07 17:16 | XMS_ITS | Clinical Summary ---
Author Organization [facility] Address [address] [place] [address] Care Team Providers Care Pearl Peller Name Role Phone Rustam Sanchez MD Primary Care Provider [phone] Mendoza Obrien MD Unavailable [phone] Source Comments [facility],non-owned Affiliates and Associated Physician Practices is amultiple site organization consisting of ambulatory clinics and hospital sitesin [place], [place], [place] and [place]. This disclosure is being madepursuant to the Care Everywhere program and may not contain all information available regarding this patient. Last updated 18.[facility] Allergies No known active allergies Medications * Be aware that medications may not be up to date on this document. Alwaysverify current medications with the patient. ferrous sulfate 325 (65 FE) MG tablet Take 1 (one) tablet by mouth once daily 100 tablet 1 Active traZODone (DESYREL) 50 MG tablet trazodone 50 mg tablet TAKE 3 TABLETS BY MOUTH EVERY DAY AT BEDTIME 1 Active JUNEL FE 1.5/30 1.5-30 MG-MCG tablet Take 1 tablet by mouth once daily 2 Active linaCLOtide (LINZESS) 290 MCG capsule Linzess 290 mcg capsule TAKE 1 CAPSULE BY MOUTH EVERY DAY 2 Active Active Problems Problem Noted Date Diagnosed Date Dysmenorrhea 05/05/2022 Dyspareunia due to medical condition in female 0 05/05/2022 Leiomyoma of uterus 04/21/2022 Abnormal uterine bleeding (AUB) 04/21/2022 Social History Tobacco Use Types Packs/Day Years Used Date Smoking Tobacco: Never Smokeless Tobacco: Never Comments Unknown Sex and Gender Information Value Date Recorded Sex Assigned at Not on file Legal Sex Female 6:18 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 Gender Identity Not on file Sexual Orientation Not on file Last Filed Vital Signs Vital Sign Reading Time Taken Comments Blood Pressure 106/60 05/05/2022 4:19 PM CDT Pulse 82 01/07/2021 11:04 AM CDT Temperature 36.7 C (98 F) 01/07/2021 11:04 AM CDT Respiratory Rate 12 01/07/2021 11:04 AM CDT Oxygen Saturation 100% 01/07/2021 11:04 AM CDT Inhaled Oxygen Concentration - - Weight 61.2 kg (135 lb) 05/05/2022 4:19 PM CDT Height 171.5 cm (5' 7.5) 05/05/2022 4:19 PM CDT Body Mass Index 20.83 05/05/2022 4:19 PM CDT Plan of Treatment Health Maintenance Due Date Last Done Comments COLOGUARD (AGES 45-75) - COLON CA SCREENING 1972 COLON MONITORING 1972 COLONOSCOPY - COLON CA SCREENING 1972 CT COLONOGRAPHY - COLON CA SCREENING 1972 Colorectal Cancer Screening 1972 FIT - COLON CA SCREENING 1972 FLEX SIG - COLON CA SCREENING 1972 MAMMOGRAM 1972 HIV SCREENING 1987 HEPATITIS C SCREENING 08/22/1990 DTAP/TDAP/TD VACCINES (1 - Tdap) 1991 HEPATITIS B VACCINE (1 of 3 - 19+ 3-dose series) 1991 PNEUMOCOCCAL VACCINE 50+ (1 of 1 - PCV) 2022 ZOSTER VACCINE (1 of 2) 2022 DEPRESSION SCREENING 09/28/2024 COVID-19 VACCINE (3 - 2024- season) 2025 09/07/2021, 08/08/2021 INFLUENZA VACCINE (#1) 2025 9, 09/27/2018, 09/16/2017, Additional history exists PAP SMEAR 10/21/2025 10/21/2022, 09/29, 12/31/2020 LIPID TESTING 06/12/2028 06/12/2023 HIB VACCINE Aged Out No longer eligi ble based on patient's age to complete this topic HPV VACCINE Aged Out No longer eligi ble based on patient's age to complete this topic MENINGOCOCCAL (Group B) VACCINE SHARED DECISION-MAKING Aged Out No longer eligible based on patient's age to complete this topic MENINGOCOCCAL GROUPS A/C/Y/W VACCINE Aged Out No longer eligible based on patient's age to complete this topic Insurance [facility] Care Teams Pearl Peller Relationship Specialty Start Date End Date Rustam Sanchez MD [address] [place] [address] PCP - General Family Medicine 01/07/21 Mendoza Obrien MD [address] [facility] [address] [place] [id number] Toaster Element Repairer Obstetrics and Gynecology 04/21/22
--- OUTSIDE RECORDS SUMMARY | 2025-06-07 17:16 | XMS_ITS | Encounter Summary ---
Author Organization [facility] Healthcare Address [address] [place] [address] Care Team Providers Care Poultry Grader Name Role Phone Rustam Sanchez MD Primary Care Provider Reason for Visit * Reason Onset Date Comments READY TO SCHEDULE 01/20/2023 Encounter Details Date Type Department Care Team (Late st Contact Info) Description 01/20/2023 Telephone [facility] Specialty Services [address] [place] [phone] Miscellaneous, Not In File READY TO SCHEDULE Social History Tobacco Use Types Packs/Day Years Used Date Smoking Tobacco: Never Assessed Comments Unknown Sex and Gender Information Value Date Recorded Sex Assigned at Not on file 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
--- OUTSIDE RECORDS SUMMARY | 2025-06-07 17:17 | XMS_ITS | Encounter Summary ---
Author Organization [employer] Address [address] [place] [address] Care Team Providers Care Gardening Supervisor Name Role Phone Unavailable Primary Care Provider Unavailabl e Encounter Details Date Type Department Care Team (Late st Contact Info) Description 03/06/2003 Outpatient Historical [facility], [address] Social History Tobacco Use Types Packs/Day Years Used Date Smoking Tobacco: Never Assessed Comments Unknown Sex and Gender Information Value Date Recorded Sex Assigned at Not on file Legal Sex Female 4:09 AM CLINICAL MOLECULAR GENETICIST Gender Identity Not on file Sexual Orientation Not on file documented as of this encounter Plan of Treatment Not on file documented as of this encounter Visit Diagnoses Not on filedocumented in this encounter
--- OUTSIDE RECORDS SUMMARY | 2025-06-07 17:17 | XMS_ITS | Clinical Summary ---
Author Organization [facility] Address [address] [place] [address] Phone Care Team Providers Care Command Post Superintendent Name Role Phone Unavailable Primary Care Provider Unavailabl e Allergies Active Allergy Reactions Criticality Noted Date Comments Adhesive Rash Low 05/28/2023 Adhesive under steri strips Medications Linzess 290 mcg capsule 10/22/2021 Active cyclobenzaprine (FLEXERIL) 5 mg Tablet 08/14/2021 Active traZODone (DESYREL) 50 mg tablet 150 mg. 08/30/2021 Active oxyCODONE (ROXICODONE) 5 mg tabletIndicatio ns:Vaginal prolapse Take 1 Tablet (5 mg) by mouth every 4 hours as needed for Break-Throug h Pain. 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 Gender Identity Not on file Sexual Orientation Not on file Last Filed Vital Signs Vital Sign Reading Time Taken Comments Blood Pressure 90/46 06/13/2023 9:09 AM CDT Pulse 75 06/13/2023 8:51 AM CDT Temperature 36.8 C (98.3 F) 06/13/2023 8:51 AM CDT Respiratory Rate 14 06/13/2023 8:51 AM CDT Oxygen Saturation 97% 06/13/2023 8:51 AM CDT Inhaled Oxygen Concentration - - Weight 59.8 kg (131 lb 14.4 oz) 06/12/2023 7:59 AM CDT Height 170.2 cm (5' 7) 06/12/2023 7:59 AM CDT Body Mass Index 20.66 06/12/2023 7:59 AM CDT Plan of Treatment Health Maintenance Due Date Last Done Comments DTAP/TDAP/TD VACCINES (1 - Tdap) 1991 HEPATITIS B VACCINES (1 of 3 - 19+ 3-dose series) 1991 FIT-DNA Q 3 years 2017 FIT/FOBT Q 1 year 2017 Flex Sig/CT Colonography Q 5 years 2017 BREAST CANCER SCREENING 07/04/2021 07/04/2020 ZOSTER VACCINE (1 of 2) 2022 INFLUENZA VACCINE (#1) 2025 COLORECTAL SCREENING 03/20/2033 03/20/2023, 03/20/20 Colorectal Cancer Screening 03/20/2033 Medical Devices Implanted Type Area Assistant Womens Volleyball Coach Device Identifier Shelf Expiration Date Model / Serial / Lot Sling Mesh Manueln Zoie Kenyon Zoie-01 - [id number] Implanted:Qty: 1 on 11/05/2021 by Fior Coello MD at [facility] Mesh N/A: [employer] 01/02/2026 ZOIE-01 / [id number] / [id number] Procedures Procedure Name Priority Date/Time Associated Diagnosis Comments MAMMO 3D ZAHRA DIAGNOSTIC BILAT W OR WO CAD Routine 07/04/2020 4:30 PM CDT Lump or mass in breast from Last 3 Months or Most Recently Relevant to Health Maintenance Results * MAMMO DIAG BILAT 3D ZAHRA W OR WO CAD (07/04/2020 4:30 PM CDT) Anatomical Region Laterality Modality Breast Bilateral Mammography 07/04/2020 4:30 PM CDT Impressions 07/05/2020 7:23 AM CDT IMPRESSION: No mammographic or sonographic evidence of a mass or malignancy. Routine follow-up is recommended. OVERALL FINAL ASSESSMENT: BI-RADS CATEGORY 1: Negative. DICTATION LOCATION: [facility] 07/05/2020 7:23 AM CDT DIGITAL DIAGNOSTIC BILATERAL MAMMOGRAPHY WITH CAD WITH TOMOSYNTHESIS AND LIMITED LEFT BREAST ULTRASOUND 07/04/2020. CLINICAL HISTORY: Patient with implants who complains of small lumps and pain in the left upper outer quadrant. Comparison is made to prior mammograms dated 11/15/2018, 10/20/2017 and 02/14/2015. TECHNIQUE: Low-dose full-field digital breast tomosynthesis exam was performed with 2-D and 3-D acquisitions. Exam is read in conjunction with CAD. Standard and implant displaced views of both breasts were obtained for total of 8 views. FINDINGS: Mammogram: The breast parenchyma is heterogeneously dense which may lower the sensitivity of mammography. Bilateral subpectoral silicone implants have a normal contour. There is no dominant mass, spiculation, architectural distortion, skin thickening or malignant calcifications. ULTRASOUND: Targeted ultrasound of the area of clinical concern was performed, in the 2:00 position 8 to 9 cm from the nipple. There is normal fibroglandular parenchyma. No cystic or solid mass or distortion is seen. Procedure Note Astrid Leyva MD - 07/05/2020 DIGITAL DIAGNOSTIC BILATERAL MAMMOGRAPHY WITH CAD WITH TOMOSYNTHESIS AND LIMITED LEFT BREAST ULTRASOUND 07/04/2020. CLINICAL HISTORY: Patient with implants who complains of small lumps and pain in the left upper outer quadrant. Comparison is made to prior mammograms dated 11/15/2018, 10/20/2017 and 02/14/2015. TECHNIQUE: Low-dose full-field digital breast tomosynthesis exam was performed with 2-D and 3-D acquisitions. Exam is read in conjunction with CAD. Standard and implant displaced views of both breasts were obtained for total of 8 views. FINDINGS: Mammogram: The breast parenchyma is heterogeneously dense which may lower the sensitivity of mammography. Bilateral subpectoral silicone implants have a normal contour. There is no dominant mass, spiculation, architectural distortion, skin thickening or malignant calcifications. ULTRASOUND: Targeted ultrasound of the area of clinical concern was performed, in the 2:00 position 8 to 9 cm from the nipple. There is normal fibroglandular parenchyma. No cystic or solid mass or distortion is seen. IMPRESSION: No mammographic or sonographic evidence of a mass or malignancy. Routine follow-up is recommended. OVERALL FINAL ASSESSMENT: BI-RADS CATEGORY 1: Negative. DICTATION LOCATION: [facility] Denisha Gould NP MAMMO ORDERABLES Final Result from Last 3 Months or Most Recently Relevant to Health Maintenance Insurance [facility] CHOICE [id number] RX OPTUM RX Member Subscriber Plan / Payer (Ef fective 2021-Present) Name:Ivet Gregory Relation to Subscriber:Self Name:Ivet Gregory Subscriber ID:Not on file Payer ID:Not on file Group ID:[id number] Type:RX Commercial Address: [address] Advance Directives For more information, please contact: [phone] * Full Code (Latest Code Status on File) Date Activated Date Inactivated Comments 06/12/2023 4:11 PM 06/13/2023 2:24 PM * Full Code Date Activated Date Inactivated Comments 06/12/2023 8:11 AM 06/12/2023 4:10 PM * Full Code Date Activated Date Inactivated Comments 11/05/2021 9:47 AM 11/05/2021 5:12 PM
--- OUTSIDE RECORDS SUMMARY | 2025-06-07 17:17 | XMS_ITS | Clinical Summary ---
Author Organization [facility] Address [address] [place] [address] Care Team Providers Care Engineering Recruiter Name Role Phone Rustam Sanchez MD Primary Care Provider [phone] Allergies Active Allergy Reactions Criticality Noted Date Comments Tape Rash Medium 05/28/2023 Adhesive under steri strips Adhesive under steri strips Medications LINZESS 290 MCG capsule Take 1 capsule (290 mcg total) by mouth daily. 11/15/2024 Active tretinoin (RETIN-A) 0.05 % cream APPLY NIGHTLY TO FACE 01/02/2025 Active traZODone (DESYREL) 50 MG tablet Take 1 tablet (50 mg total) by mouth nightly at bedtime. Active cyclobenzaprine (FLEXERIL) 5 MG tablet Take 1 tablet (5 mg total) by mouth 3 (three) times daily as needed for Muscle Spasms. 30 tablet 05/08/2025 05/18/20 25 Active Problems Problem Noted Date Diagnosed Date Cervical spondylosis 01/17/2025 Encounters Date Type Department Care Team Description 05/10/2025 Telephone [facility] [place] [address] [id number] Melyssa Emanuel RN Postprocedure Call (PREVIOUSLY UNABLE TO REACH PT OR LEAVE MESSAGE MAIL BOX WAS FULL) 05/09/2025 Telephone [facility] [place] [address] [phone] Julissa De RN Follow Up (/) 05/08/2025 Orders Only [facility] [place] [address] [id number] Tawanda Zhao, ORE STORAGE DRIER 05/08/2025 Telephone [facility] [place] [address] [id number] Jory Marin, RN Follow Up Call 05/04/2025 7:00 AM CDT - 05/04/2025 7:20 AM CDT Surgery [facility] [place] [address] [id number] Brandi Workman MD BLOCK MEDIAL BRANCH CERVICAL ton, c3, c4 05/04/2025 6:36 AM CDT - 05/04/2025 7:32 AM CDT Hospital Encounter [facility] [place] [address] [phone] Brandi Workman MD Discharge Disposition: Home or Self Care (Routine Discharge) 05/04/2025 Travel from Last 3 Months Social History Tobacco Use Types Packs/Day Years Used Date Smoking Tobacco: Never Smokeless Tobacco: Never Tobacco Cessation:Counseling Given: Not Answered Alcohol Use Standard Drinks/Week Comments Yes 0 (1 standard drink = 0.6 oz pur e alcohol) seldom Comments No Sex and Gender Information Value Date Recorded Sex Assigned at Female 01/17/2025 2:37 PM CDT Legal Sex Female 8:03 PM CDT Gender Identity Not on file Sexual Orientation Not on file Last Filed Vital Signs Vital Sign Reading Time Taken Comments Blood Pressure 99/69 05/04/2025 7:26 AM CDT Pulse 66 05/04/2025 7:26 AM CDT Temperature 36.2 C (97.1 F) 05/04/2025 6:52 AM CDT Respiratory Rate 20 05/04/2025 7:26 AM CDT Oxygen Saturation 98% 05/04/2025 7:26 AM CDT Inhaled Oxygen Concentration - - Weight 55.8 kg (123 lb) 05/04/2025 6:52 AM CDT Height 170.2 cm (5' 7) 05/04/2025 6:52 AM CDT Body Mass Index 19.26 05/04/2025 6:52 AM CDT Plan of Treatment Health Maintenance Due Date Last Done Comments Colorectal Cancer Screening Colonoscopy (10 Years) 1972 Annual Physical 1975 Hepatitis C 1990 DTaP, Tdap and Td Vaccines ( 1 - Tdap) 1991 Hepatitis B Vaccines (1 of 3 - 19+ 3-dose series) 1991 Mammogram Screening 07/04/2022 07/04/2020 Pneumococcal Vaccine: 50+ Ye ars (1 of 1 - PCV) 2022 Zoster Vaccines (1 of 2) 2022 COVID-19 Vaccine (1 - 2023-2 5 season) 2025 Meningococcal B Vaccine Aged Out No l onger eligible based on patient's age to complete this topic Meningococcal Vaccine Aged Out No raine karl eligible based on patient's age to complete this topic RSV Immunizations Under 20 Months Aged Out No longer eligible based on patient's age to complete this topic Procedures Procedure Name Priority Date/Time Associated Diagnosis Comments BLOCK MEDIAL BRANCH CERVICAL 05/04/2025 7:11 AM CDT Cervical spondylosis XR PAIN CL[facility]IC C-ARM Today 05/04/2025 6:58 AM CDT from Last 3 Months Results * XR PAIN CLINIC C-ARM (05/04/2025 6:58 AM CDT) Narrative Radiology, Technologist - 05/04/2025 6:58 AM CDT This report does not contain a radiologist's interpretation. Please review associated procedure and/or operative report. Brandi Workman MD GENERAL IMAGING Final Result from Last 3 Months Insurance [facility] Care Teams Engineering Recruiter Relationship Specialty Start Date End Date Rustam Sanchez MD [address] [place] [address] PCP - General FAMILY PRACTICE 12/28/23
[2025-06-07 17:30] VITALS: BP 97/60; PULSE 73; RESP 16; TEMP 36.6; O2SAT 100
--- NOTE | 2025-06-07 17:37 | ED_ITS ---
HPI - Extremity Injury (Lower) General Chief Complaint: Extremity Injury, Lower <Sreedhar Bishop APRN - Last Filed: 06/07/25 17:43> Stated Complaint: L KNEE PAIN POSTERIOR AFTER CAR RIDE <Sreedhar Bishop APRN - Last Filed: 06/07/25 17:43> Time Seen by Provider: 06/07/25 18:37 <Sreedhar Bishop APRN - Last Filed: 06/07/25 17:43> Focused HPI: 54-year-old female presents to the ER complaining of left posterior knee pain last 3-4 days. Patient denies any injuries. Patient also reports chronic back pain. Patient says she was recently traveling prolonged [facility] drip over the weekend he started while she was traveling to the back of her left knee. Since then the pain is gotten worse to her knee. Patient reports the pain is a throbbing sensation to the back of her knee. Patient denies any redness, swelling, bruising, numbness or tingling. She denies any chest pain or shortness of breath. Patient denies any history of blood clots. GENERAL: Well-appearing, well-nourished, and in no acute distress. HEAD: Normocephalic, atraumatic. CHEST: Clear to auscultation. ?No respiratory distress. HEART: Regular rate and rhythm.? NEURO: ?Alert and oriented x3. MSK: Left knee: No obvious bruising, deformity, redness, swelling, or injury. No palpable cord. There is tenderness to palpation to the posterior knee. No bony tenderness. No valgus or varus laxity. Left pedal pulse 2 +and palpable. Capillary refill less than 2 seconds. Neurovascular status intact distally. Patient screened in triage and initial orders placed.? ?Additional care and disposition to be based upon?diagnostic testing and treatment. <Sreedhar Bishop APRN - Last Filed: 06/07/25 17:43> Related Data Home Medications: Home Medications ?Medication ?Instructions ?Recorded ?Confirmed ?Last Taken ?Type azelastine 137 mcg-fluticasone 50 1 spray intranasal B ID 03/18/24 06/29/24 Unknown History mcg/spray nasal spray <Sreedhar Bishop APRN - Last Filed: 06/07/25 17:43> Allergies/Adverse Reactions: Allergies Allergy/AdvReac Type Severity Reaction Status Date / Time No Known Drug Allergies Allergy Unknown none Verified 06/07/25 18:49 <Sreedhar Bishop APRN - Last Filed: 06/07/25 17:43> [facility] Past Medical History Medical History: Medical History Endometriosis Irritable bowel syndrome <Sreedhar Bishop APRN - Last Filed: 06/07/25 17:43> Surgical History Surgical History: Surgical History History of bladder surgery <Sreedhar Bishop APRN - Last Filed: 06/07/25 17:43> Family History Family History: Family History Grandparent Ovarian cancer [place] disease Father Skin cancer (melanoma) <Sreedhar Bishop APRN - Last Filed: 06/07/25 17:43> Social History Social History: Social History (Updated 07/28/24 @ 15:06 by Zohreh Vaughn) Smoking status: Never smoker Alcohol intake: current Drinks per week: 8 Alcohol use details: social Substance use: never Substance use type: does not use Do You Feel Safe in your Home?: Yes Lack of Transportation: No Lack of Food: Never True Current Housing: I Have Housing Concerned About Future Housing: No Difficulty Paying Gas/Electric Bills: No Difficulty Paying for Meds: No Currently Unemployed: No Education: Don't Know Difficulty w/ Childcare or Family Care: No Living arrangements: with family Occupation/Education: occupation Gender identity (if verbalized by the patient): Female Sexual Orientation (if Verbalized by the Patient): Straight or Heterosexual Spiritual care concerns: No <Sreedhar Bishop APRN - Last Filed: 06/07/25 17:43> Exam Narrative: APPEARANCE: No apparent distress. Head: atraumatic. EYES: EOMI, NOSE: Atraumatic NECK: Trachea midline RESPIRATORY: No increased rate of breathing CARDIOVASCULAR: RRR, ABDOMINAL: Non-distended MUSCULOSKELETAl: Focal exam of the left knee revealed no deformities effusion or warmth joint. Pulses are strong. Motor function intact. No palpable mass behind the knee. NEURO: Alert. Moving 4/4 extremities SKIN:: Warm, dry. Normal color PSYCHIATRIC: Normal affect <Gui Worrell MD - Last Filed: 06/07/25 18:59> Course Vital Signs Vital signs: Vital Signs Temperature 97.9 F 06/07/25 17:30 Pulse Rate 73 06/07/25 17:30 Respiratory Rate 16 06/07/25 17:30 Blood Pressure 97/60 L 06/07/25 17:30 Pulse Oximetry 100 06/07/25 17:30 Oxygen Delivery Room Air 06/07/25 17:30 Temperature 97.9 F 06/07/25 17:30 Pulse Rate 73 06/07/25 17:30 Respiratory Rate 16 06/07/25 17:30 Blood Pressure 97/60 L 06/07/25 17:30 Pulse Oximetry 100 06/07/25 17:30 Oxygen Delivery Room Air 06/07/25 17:30 <Sreedhar Bishop APRN - Last Filed: 06/07/25 17:43> Vital Signs Temperature 97.9 F 06/07/25 17:30 Pulse Rate 73 06/07/25 17:30 Respiratory Rate 16 06/07/25 17:30 Blood Pressure 97/60 L 06/07/25 17:30 Pulse Oximetry 100 06/07/25 17:30 Oxygen Delivery Room Air 06/07/25 17:30 Temperature 97.9 F 06/07/25 17:30 Pulse Rate 73 06/07/25 17:30 Respiratory Rate 16 06/07/25 17:30 Blood Pressure 97/60 L 06/07/25 17:30 Pulse Oximetry 100 06/07/25 17:30 Oxygen Delivery Room Air 06/07/25 17:30 <Gui Worrell MD - Last Filed: 06/07/25 18:59> MDM - Extremity Injury (Lower) MDM Narrative Medical decision making narrative: 54-year-old female presenting with left knee pain. This was preceded by a flare of her chronic lower back pain. X-rays were negative. DVT is negative. Pain may be compensation injury from her lower back pain. Regardless we will do a conservative approach which NSAIDs muscle relaxers and lidocaine patches. She will follow up with primary care physician for further management. Given return precautions. <Gui Worrell MD - Last Filed: 06/07/25 18:59> Discharge Plan Discharge Clinical Impression: Acute knee pain <Sreedhar Bishop APRN - Last Filed: 06/07/25 17:43> Patient Disposition: Home <Sreedhar Bishop APRN - Last Filed: 06/07/25 17:43> Condition: Stable <Sreedhar Bishop APRN - Last Filed: 06/07/25 17:43> Instructions: Antibiotic Form, Knee Pain (ED) <Sreedhar Bishop APRN - Last Filed: 06/07/25 17:43> Additional Instructions: Please use Motrin Tylenol, Robaxin and lidocaine patches as needed for pain. Please follow-up with your primary care physician in 1 week. If you develop severe pain or weakness your leg you can return to the ED for evaluation <Sreedhar Bishop APRN - Last Filed: 06/07/25 17:43> Patient Language: Austrian <Sreedhar Bishop APRN - Last Filed: 06/07/25 17:43> Prescriptions: New methocarbamol 750 mg tablet 1,500 mg PO TID Qty: 45 0RF lidocaine 5 % adhesive patch,medicated 1 patch topical DAILY Qty: 15 0RF Rx Instructions: leave on most painful area for up to 12 hrs No Action azelastine-fluticasone 137-50 mcg/spray spray,non-aerosol 1 spray INTRANASAL BID Linzess 290 mcg capsule 290 mcg PO DAILY Qty: 90 3RF cyclobenzaprine 5 mg tablet 5 mg PO TID PRN (Reason: muscle spasm) Qty: 30 0RF trazodone 50 mg tablet 150 mg PO .qhs Qty: 270 2RF <Sreedhar Bishop APRN - Last Filed: 06/07/25 17:43> Follow-up/Referrals: Rustam Sanchez MD [Primary Care Provider, Family Practice] <Sreedhar Bishop APRN - Last Filed: 06/07/25 17:43>
--- OUTSIDE RECORDS SUMMARY | 2025-06-07 19:12 | XMS_ITS | Encounter Summary ---
Author Organization [facility] Address [address] [place] [address] Care Team Providers Care Macroeconomics Professor Name Role Phone Rustam Sanchze MD Primary Care Provider Encounter Details Date Type Department Care Team (Late st Contact Info) Description 01/02/2023 Documentation [facility] Specialty Services [address] [place] [phone] Miscellaneous, Not In File Social History Tobacco Use Types Packs/Day Years Used Date Smoking Tobacco: Never Assessed Comments Unknown Sex and Gender Information Value Date Recorded Sex Assigned at Not on file 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
--- OUTSIDE RECORDS SUMMARY | 2025-06-07 19:12 | XMS_ITS | Clinical Summary ---
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 DICTATION LOCATION: [facility] 07/05/2020 7:23 AM CDT DIGITAL DIAGNOSTIC BILATERAL [...] ASSESSMENT: BI-RADS CATEGORY 1: Negative. DICTATION LOCATION: [facility] Denisha Gould NP MAMMO ORDERABLES Final Result from Last 3 Months or Most Recently Relevant to Health Maintenance Insurance [facility] CHOICE [id number] RX [employer] RX Member Subscriber Plan / Payer (Ef fective 2021-Present) Name:Ivet Gregory Relation to Subscriber:Self Name:Ivet Gregory Subscriber ID:Not on file Payer ID:Not on file Group ID:[id number] Type:RX Commercial Address: [address] Advance Directives For more information, please contact: [phone] * Full Code (Latest Code Status on File) Date Activated Date Inactivated Comments 06/12/2023 4:11 PM 06/13/2023 2:24 PM * Full Code Date Activated Date Inactivated Comments 06/12/2023 8:11 AM 06/12/2023 4:10 PM * Full Code Date Activated Date Inactivated Comments 11/05/2021 9:47 AM 11/05/2021 5:12 PM
--- OUTSIDE RECORDS SUMMARY | 2025-06-07 19:12 | XMS_ITS | Clinical Summary ---
Author Organization [facility] Address [address] [facility] [place] [address] Care Team Providers Care It Operations Analyst Name Role Phone Rustam Sanchez MD Primary Care Provider [phone] Mendoza Obrien MD Unavailable [phone] Source Comments [facility],non-owned Affiliates and Associated Physician Practices is amultiple site organization consisting of ambulatory clinics and hospital sitesin [place], [place], [place] and [place]. This disclosure is being madepursuant to the Care Everywhere program and may not contain all information available regarding this patient. 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
--- OUTSIDE RECORDS SUMMARY | 2025-06-07 19:12 | XMS_ITS | Encounter Summary ---
Author Organization [facility] Healthcare Address [address] [place] [id number] Care Team Providers Care Rn Acute Name Role Phone Rustam Sanchez MD Primary Care Provider Reason for Visit * Reason Onset Date Comments READY TO SCHEDULE 01/20/2023 Encounter Details Date Type Department Care Team (Late st Contact Info) Description 01/20/2023 Telephone [facility] Specialty Services [address] [place] [phone] Miscellaneous, Not In File READY TO SCHEDULE Social History Tobacco Use Types Packs/Day Years Used Date Smoking Tobacco: Never Assessed Comments Unknown Sex and Gender Information Value Date Recorded Sex Assigned at Not on file 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
--- OUTSIDE RECORDS SUMMARY | 2025-06-07 19:12 | XMS_ITS | Encounter Summary ---
Author Organization [facility] Healthcare Address [address] [place] [id number] Care Team Providers Care Steel Plate Printer Name Role Phone Rustam Sanchez MD Primary Care Provider Reason for Visit * Reason Onset Date Comments Ready to schedule 01/02/2023 Encounter Details Date Type Department Care Team (Late st Contact Info) Description 01/02/2023 Telephone [facility] Specialty Services [address] [place] [phone] Miscellaneous, Not In File Ready to schedule Social History Tobacco Use Types Packs/Day Years Used Date Smoking Tobacco: Never Assessed Comments Unknown Sex and Gender Information Value Date Recorded Sex Assigned at Not on file 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
--- OUTSIDE RECORDS SUMMARY | 2025-06-07 19:12 | XMS_ITS | Clinical Summary ---
Author Organization [facility] Address [address] [place] [phone] Care Team Providers Care Lozenge Maker Name Role Phone Rustam Sanchez MD Primary [...] uterine and vaginal bleeding;Recorded Elsewhere: No Location: [facility] Source: EHR Chronic: N Practice ID: [id number] Billable Time: 10:30:00 AM Contraceptive management 08/10/2017 Overview (12/31/2023): IUD follow up;Recorded Elsewhere: No Location: [facility] Source: EHR Chronic: N Practice ID: [id number] Billable Time: 04:45:00 PM Female genital symptoms 03/14/2015 Overview (12/31/2023): Pelvic pain;Recorded Elsewhere: No Location: [facility] Source: EHR Chronic: N Practice ID: [...] on file 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 Room: [facility] ENDOSCOPY ROOM 05 Note Status: Finalized Procedure: [...] The scope was passed under direct vision.The [id number] was introduced through the anusand advanced to [...] Most Recently Relevant to Health Maintenance Insurance [employer] [facility] Address: [address] [phone] [employer] [facility] [employer] Address: [address] [phone] Advance Directives For more information, please contact: [phone] * Full Code (Latest Code Status on File) Date Activated Date Inactivated Comments 03/20/2023 7:07 AM 03/20/2023 1:37 PM Care Teams Lozenge Maker Relationship Specialty Start Date End Date Rustam Sanchez MD [address] [facility] [address] [place] [address] PCP - General Family Medicine 01/21/23
--- OUTSIDE RECORDS SUMMARY | 2025-06-07 19:13 | XMS_ITS | Encounter Summary ---
Author Organization [facility] Address 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
--- OUTSIDE RECORDS SUMMARY | 2025-06-07 19:13 | XMS_ITS | Clinical Summary ---
Author Organization [facility] Address [address] [place] [address] Care Team Providers Care Radioisotope Technician Name Role Phone Rustam Sanchez MD Primary Care Provider [phone] Allergies Active Allergy Reactions Criticality Noted Date [...] Type Department Care Team Description 05/10/2025 Telephone [facility] [place] [address] [phone] Melyssa Emanuel RN Postprocedure Call (PREVIOUSLY UNABLE TO REACH PT OR LEAVE MESSAGE MAIL BOX WAS FULL) 05/09/2025 Telephone [facility] [place] [address] [phone] Julissa De RN Follow Up (/) 05/08/2025 Orders Only [facility] [place] [address] [id number] Tawanda Zhao, CIGARETTE INSPECTOR 05/08/2025 Telephone [facility] [place] [address] [phone] Jory Marin, RN Follow Up Call 05/04/2025 7:00 AM CDT - 05/04/2025 7:20 AM CDT Surgery [facility] [place] [place] [address] [id number] Brandi Workman MD BLOCK MEDIAL BRANCH CERVICAL ton, c3, c4 05/04/2025 6:36 AM CDT - 05/04/2025 7:32 AM CDT Hospital Encounter [facility] [place] [place] [address] [id number] Brandi Workman MD Discharge Disposition: Home or [...] Final Result from Last 3 Months Insurance [facility] Care Teams Radioisotope Technician Relationship Specialty Start Date End Date Rustam Sanchez MD [address] [place] [address] PCP - General FAMILY PRACTICE 12/28/23
[2025-06-07 19:20] VITALS: BP 122/74; PULSE 64; RESP 16; O2SAT 100
== END 2025-06-07 19:22 | disposition home or self-care (01) ==
LOC: ANHED 19:10
PROVIDERS: Emergency Provider Emergency Medicine; PCP Family Medicine
DX: M25.562 Pain in left knee (principal); K58.9 Irritable bowel syndrome, unspecified; N80.9 Endometriosis, unspecified; Z79.899 Other long term (current) drug therapy
CPT/HCPCS: 73562; 93971; 99284